=== PATIENT | female | born 1995 | race Two or more races ===

== ENCOUNTER 2024-06-26 16:45 | Emergency (ER) | payer MEDICAID, OTHER ==
[~2024-06-26] VITALS: Ht 167.6 cm; Wt 88.7 kg
[2024-06-26 17:17] VITALS: BP 120/76; PULSE 92; RESP 14; TEMP 98.4; O2SAT 98
[2024-06-26] MEDS ORDERED: NAPR-746 PO (17:48)
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
== END 2024-06-26 17:59 | disposition home or self-care (01) ==
LOC: ER 16:45
DX: S40.011A Contusion of right shoulder, initial encounter (principal); Z79.899 Other long term (current) drug therapy; V49.59XA Passenger injured in collision with other motor vehicles in traffic accident, initial encounter; Y93.89 Activity, other specified; Y92.89 Other specified places as the place of occurrence of the external cause; Y99.8 Other external cause status
CPT/HCPCS: 73030

== ENCOUNTER 2024-06-27 15:24 | Emergency (ER) | payer MEDICAID, OTHER ==
[~2024-06-27 15:24] MED LIST: NAPR-746 PO
== END 2024-06-27 15:44 | disposition left against medical advice (07) ==
LOC: ER 15:24
DX: Z00.00 Encounter for general adult medical examination without abnormal findings (principal); Z53.21 Procedure and treatment not carried out due to patient leaving prior to being seen by health care provider

== ENCOUNTER 2024-12-24 11:29 | Emergency (ER) | payer MEDICAID, OTHER ==
[~2024-12-24] VITALS: Ht 152.4 cm; Wt 70.3 kg
--- NOTE | 2024-12-24 12:35 | ED.PDOC ---
History of Present Illness HPI Comments 29-year-old female presents to the ER with prior surgical history of appendectomy and a chief complaint of abdominal pain. Patient reports on having epigastric pain which is tender to touch as well as being pain when eating since Sunday of 12/22/24. Patient notes that she did wake up with the pain on Sunday. Patient states on having pain during urination which started today. Denies chills, fever, N/V/D, SOB, CP. No other associated symptoms, modifiers, recent injuries or sick contacts present at this time. Chief Complaint: Abdominal Pain Time Seen by MD: 12:30 Reviewed Notes: Nurses Notes, Medications, Allergies Allergies: Coded Allergies: NO KNOWN ALLERGIES (Unverified , 06/26/24) Home Meds Active Scripts Naproxen (Naproxen) 500 Mg Tab, 500 MG PO BID, #30 TAB Prov:RAMÓN MARADIAGA 06/26/24 Information Source: Patient Mode of Arrival: Ambulatory Severity: Moderate Timing: Days Duration: Since onset, Days Prehospital treatment: None Past Medical History PAST MEDICAL HISTORY: Denies Surgical History: Denies all surgeries DEBUBBLIZER History: No Pertinent DEBUBBLIZER History Family History Family History: Reviewed,noncontributory to illness, Unknown Social History Smoker: Non-Smoker Alcohol: Denies ETOH Use Drugs: Denies Drug Use Lives In: Home Constitutional: denies: chills, diaphoresis, fatigue, fever, malaise, sweats, weakness, others EENTM: denies: blurred vision, double vision, ear bleeding, ear discharge, ear drainage, ear pain, ear ringing, eye pain, eye redness, hearing loss, mouth pain, mouth swelling, nasal discharge, nose bleeding, nose congestion, nose pain, photophobia, tearing, throat pain, throat swelling, voice changes, others Respiratory: denies: cough, hemoptysis, orthopnea, SOB at rest, shortness of breath, SOB with excertion, stridor, wheezing, others Cardiovascular: denies: chest pain, dizzy spells, diaphoresis, Dyspnea on exertion, edema, irregular heart beat, left arm pain, lightheadedness, palpi tations, PND, syncope, others Gastrointestinal: reports: abdominal pain, poor appetite; denies: abdomen distended, blood streaked bowels, constipated, diarrhea, dysphagia, difficulty swallowing, hematemesis, melena, nausea, poor fluid intake, rectal bleeding, rectal pain, vomiting, others Genitourinary: reports: pain (Urination); denies: abnormal vagina bleeding, burning, dyspareunia, dysuria, flank pain, frequency, hematuria, incontinence, , vagina discharge, urgency, others Neurological: denies: dizziness, fainting, headache, left sided numbness, left sided weakness, numbness, paresthesia, pre-existing deficit, right sided numbness, right sided weakness, seizure, speech problems, tingling, tremors, weakness, others Musculoskeletal: denies: back pain, gout, joint pain, joint swelling, muscle pain, muscle stiffness, neck pain, others Integumetry: denies: bruises, change in color, change in hair/nails, dryness, laceration, lesions, lumps, rash, wounds, others Allergic/Immunocompromised: denies: Difficulty Healing, Frequent Infections, Hives, Itching, others Hematologic/Lymphatic: denies: anemia, blood clots, easy bleeding, easy bruising, swollen glands, others Endocrine: denies: excessive hunger, excessive sweating, excessive thirst, excessive urination, flushing, intolerance to cold, intolerance to heat, unexplained weight gain, unexplained weight loss, others Psychiatric: denies: anxiety, bipolar disorder, depression, hopeless, panic disorder, schizophrenia, sleepless, suicidal, others All Other Systems: Reviewed and Negative Physical Exam General Appearance: No Apparent Distress, Normal HEENT: Normal ENT Inspection, Pharynx Normal, TMs Normal Neck: Full Range of Motion, Non-Tender, Normal, Normal Inspection Respiratory: Chest Non-Tender, Lungs Clear, No Accessory Muscle Use, No Respiratory Distress, Normal Breath Sounds Cardiovascular: No Edema, No JVD, No Murmur, No Gallop, Normal Peripheral Pulses, Regular Rate/Rhythm Breast Exam: Deferred Gastrointestinal: No Organomegaly, Non Tender, No Pulsatile Mass, Normal Bowel Sounds, Soft Genitalia: Deferred Pelvic: Deferred Rectal: Deferred Extremities: No calf tenderness, Normal capillary refill, Normal inspection, Normal range of motion, Non-tender, No pedal edema Musculoskeletal : Apperance: Normal Neurologic: Alert, rn clinical documentation II-XII nml as Tested, No Motor Deficits, Normal Affect, Normal Mood, No Sensory Deficits Cerebellar Function: Normal Reflexes: Normal Skin: Dry, Normal Color, Warm Lymphatic: No Adenopathy Was a procedure done? Was a procedure done?: No Differential Dx Considerations may include: Electrolyte abnormality, infectious etiology, UTI X-Ray, Labs, Meds, VS Vital Signs Date Time Temp Pulse Resp B/P (MAP) Pulse Ox O2 Delivery O2 Flow Rate FiO2 12/24/24 15:44 74 16 117/73 (88) 99 12/24/24 13:19 66 16 125/74 (91) 100 12/24/24 11:31 79 16 121/70 98 Lab Test 12/24/24 16:40 12/24/24 16:39 12/24/24 12:58 Range/Units Urine Test Negative Negative Urine Color Yellow Yellow Urine Clarity Clear Clear Urine pH 6.5 5.0-9.0 Urine Specific [place] 1.024 1.001-1.035 Urine Protein Negative Negative Urine Ketones Negative Negative Urine Blood Negative Negative /uL Urine Nitrite Negative Negative Urine Bilirubin Negative Negative Urine Urobilinogen Normal Negative mg/dL Urine Leukocyte Esterase Negative Negative /uL Urine RBC 1 0 - 4 /hpf Urine Microscopic WBC 1 0-5 /HPF Urine Squamous Epithelial Cells Few <5 /hpf Urine Bacteria None seen None Seen /hpf Urine Mucus Few None Seen Urine Glucose Normal Normal mg/dL White Blood Count 6.3 4.4-10.8 10^3/uL Red Blood Count 5.51 H 4.0-5.20 10^6/uL Hemoglobin 13.9 12.2-16.2 g/dL Hematocrit 41.9 36.0-46.0 % Mean Corpuscular Volume 75.9 L 80.0-100.0 fL Mean Corpuscular Hemoglobin 25.1 L 28.0-32.0 pg Mean Corpuscular Hemoglobin Concent 33.1 32.0-36.0 g/dL Red Cell Distribution Width 14.2 11.8-14.3 % Platelet Count 231 140-450 10^3/uL Mean Platelet Volume 8.5 6.9-10.8 fL Neutrophils (%) (Auto) 59.0 37.0-80.0 % Lymphocytes (%) (Auto) 24.8 10.0-50.0 % Monocytes (%) (Auto) 10.7 0.0-12.0 % Eosinophils (%) (Auto) 4.9 0.0-7.0 % Basophils (%) (Auto) 0.6 0.0-2.0 % Neutrophils # (Auto) 3.7 1.6-8.6 10 ^3/uL Lymphocytes # (Auto) 1.6 0.4-5.4 10 ^3/uL Monocytes # (Auto) 0.7 0-1.3 10 ^3/uL Eosinophils # (Auto) 0.3 0-0.8 10 ^3/uL Basophils # (Auto) 0 0-0.2 10 ^3/uL Nucleated Red Blood Cells 0.1 % Sodium Level 140 136-145 mmol/L Potassium Level 4.1 3.5-5.1 mmol/L Chloride Level 105 98-107 mmol/L Carbon Dioxide Level 26 20-31 mmol/L Anion Gap 9 5-15 Blood Urea Nitrogen 8 L 9-23 mg/dL Creatinine 0.89 0.550-1.02 mg/dL Glomerular Filtration Rate Calc 89 >90 mL/min BUN/Creatinine Ratio 9.0 L 10.0-20.0 Serum Glucose 86 74-106 mg/dL Calcium Level 8.9 8.7-10.4 mg/dL Current Medications Medications (Trade) Dose Ordered Sig/Britta Route Start Time Stop Time Status Last Admin Ondansetron HCl (Zofran Po) 4 mg ONCE ONCE PO 12/24/24 16:15 12/24/24 16:16 DC 12/24/24 16:37 Famotidine (Pepcid Tablet) 20 mg ONCE ONCE PO 12/24/24 16:15 12/24/24 16:16 DC 12/24/24 16:36 Al Hydrox/Mg Hydrox/Simethicone (Maalox Plus) 15 ml ONCE ONCE PO 12/24/24 16:15 12/24/24 16:16 DC 12/24/24 16:37 Acetaminophen/ Hydrocodone Bitart ([place] 5/325MG Tab) 1 tab ONCE ONCE PO 12/24/24 16:45 12/24/24 16:46 DC 12/24/24 16:36 Time of 1ST Reevaluation: 13:00 Reevaluation 1ST: Unchanged Patient Education/Counseling: Diagnosis, Treatment, Prognosis Family Education/Counseling: No Family Present SEPSIS Sepsis Screen Date sepsis recognized/suspect: Dec 24, 2024 Time Sepsis recognized/suspect: 1130 Recent Procedure: No On Antibiotic Therapy: No Respiratory Rate >20: No Heart Rate >90: No Temp<36 C (96.8 F) or >38.3 C: No SBP <90 or MAP <65 mmHG: No New Acute Mental Status Change: No Is the patient on CPAP, BIPAP,: No Vital Signs Date Time Temp Pulse Resp B/P (MAP) Pulse Ox O2 Delivery O2 Flow Rate FiO2 12/24/24 15:44 74 16 117/73 (88) 99 12/24/24 13:19 66 16 125/74 (91) 100 12/24/24 11:31 79 16 121/70 98 Laboratory Tests Test 12/24/24 12:58 White Blood Count 6.3 10^3/uL (4.4-10.8) Medications Medications Dose Ordered Sig/Britta Route Start Time Stop Time Status Last Admin Dose Admin Acetaminophen/ Hydrocodone Bitart 1 tab ONCE ONCE PO 12/24/24 16:45 12/24/24 16:46 DC 12/24/24 16:36 Al Hydrox/Mg Hydrox/Simethicone 15 ml ONCE ONCE PO 12/24/24 16:15 12/24/24 16:16 DC 12/24/24 16:37 Famotidine 20 mg ONCE ONCE PO 12/24/24 16:15 12/24/24 16:16 DC 12/24/24 16:36 Ondansetron HCl 4 mg ONCE ONCE PO 12/24/24 16:15 12/24/24 16:16 DC 12/24/24 16:37 Departure 1 Departure Time of Disposition: 16:54 (Patient likely with gastroenteritis. Workup is benign. We will discharge patient home with outpatient follow up) Impression: Primary Impression: Acute gastroenteritis Disposition: 01 HOME / SELF CARE / HOMELESS Condition: Stable Additional Instructions: You likely have gastroenteritis. It is important to stay well hydrated and well rested. This usually resolves within 1 week. If your symptoms worsen or you have any other concerns please return to the ER. e-Prescriptions Ondansetron Odt 4MG Tab (ZOFRAN PO) 4 Mg Tb 4 MG PO TID PRN for 4 Days, #12 TAB ODT TAB-DISSOLVE IN MOUTH, THEN SWALLOW Prov: MARCELINO WAYNE MD 12/24/24 Discharged With: Self Critical Care Note Critical Care Time?: No Stability Stability form required: No I personally scribed for MARCELINO WAYNE MD ([email or web address]) on 12/24/24 at 12:35. Electronically submitted by Edy Landon ([email or web address]). MARCELINO WAYNE MD Dec 24, 2024 12:35
[2024-12-24 13:40] LABS: Hematocrit 41.9 % (36.0-46.0); Hemoglobin 13.9 g/dL (12.2-16.2); Mean Corpuscular Hemoglobin 25.1 pg (28.0-32.0); Mean Corpuscular Volume 75.9 fL (80.0-100.0); Nucleated Red Blood Cells % 0.1 %
[2024-12-24 13:48] LABS: Chloride 105 mmol/L (98-107); Potassium 4.1 mmol/L (3.5-5.1); Sodium 140 mmol/L (136-145)
[2024-12-24 13:49] LABS: Anion Gap 9 (5-15); Calcium 8.9 mg/dL (8.7-10.4); Carbon Dioxide 26 mmol/L (20-31)
[2024-12-24 13:54] LABS: BUN/Creatinine Ratio 9.0 (10.0-20.0); Glucose 86 mg/dL (74-106)
[2024-12-24 13:58] LABS: Blood Urea Nitrogen 8 mg/dL (9-23)
[2024-12-24] MEDS: FAMOTIDINE 20 MG TAB PO ONE (16:36)
[2024-12-24] MEDS: HYDROcodone-ACET 5/325MG TAB PO ONE (16:36)
[2024-12-24] MEDS: MAALOX PLUS or MAALOX 30 ML PO ONE (16:37)
[2024-12-24] MEDS: ONDANSETRON ODT 4 MG TAB PO ONE (16:37)
[2024-12-24] MEDS ORDERED: HYDROcodone-ACET 5/325MG TAB ONE (16:38)
[2024-12-24 16:50] LABS: Urine Protein, UAD Negative (Negative)
[2024-12-24] MEDS ORDERED: ZOFR4T PO (16:55)
[2024-12-24 17:07] VITALS: BP 123/70; PULSE 75; RESP 16; TEMP 98.9
[2024-12-24 17:08] VITALS: O2SAT 95
== END 2024-12-24 17:08 | disposition home or self-care (01) ==
LOC: ER 11:29
DX: K52.9 Noninfective gastroenteritis and colitis, unspecified (principal); Z90.49 Acquired absence of other specified parts of digestive tract
CPT/HCPCS: 36415; 80048; 81001; 81025; 85025; 99284; Q0162